=== PATIENT | female | born 1980 | race Caucasian/White ===

== ENCOUNTER 2018-06-16 11:05 | Emergency (ER) | payer MEDICARE ==
[~2018-06-16] VITALS: Ht 160 cm; Wt 113.6 kg
[~2018-06-16 11:05] MED LIST: FIORICET PO; GABAPENTIN600 MG PO; LAMICTAL100 M1 PO; LEVOTHYROXIN100 MCG PO; ORTHO CYCLEN PO; STRATTERA100 MG PO; TRAZODONE300 MG PO; ULTRAM50 M1 PO
[2018-06-16] MEDS ORDERED: TRINTELLIX10 MG PO (11:20)
[2018-06-16] MEDS ORDERED: SAPHRIS2.5 MG PO (11:20)
[2018-06-16] MEDS ORDERED: LISINOPRIL10 MG PO (11:21)
[2018-06-16] MEDS ORDERED: HYDROCHLOROT25 MG PO (11:21)
[2018-06-16] MEDS ORDERED: METFORMIN500 MG PO (11:21)
[2018-06-16] MEDS ORDERED: MEVACOR10 MG PO (11:22)
[2018-06-16] MEDS ORDERED: ADIPEX-P37.5 MG PO (11:22)
[2018-06-16 11:52] LABS: URINE BILIRUBIN - DIPSTICK NEGATIVE (NEGATIVE); URINE BLOOD DIPSTICK TRACE-INTACT (NEGATIVE); URINE COLOR YELLOW; URINE GLUCOSE - DIPSTICK NEGATIVE (NEGATIVE); URINE KETONE NEGATIVE (NEGATIVE); URINE LEUK ESTERASE NEGATIVE (NEGATIVE); URINE NITRITE - DIPSTICK NEGATIVE (Negative); URINE PH 7.5 (4.5-8.0); URINE PROTEIN - DIPSTICK NEGATIVE (NEG-TRACE); URINE UROBILINOGEN - DIPSTICK 0.2 E.U./dL (0.2)
[2018-06-16 12:03] LABS: HEMATOCRIT 38.2 % (37.0-47.0); HEMOGLOBIN 12.1 g/dl (12.0-16.0); IMMATURE GRANULOCYTES 0.4 % (0.0-5.0); MEAN CORPUSCULAR HGB CONC 31.7 g/L CALC (32.0-36.0); NEUT# 4.02 thou/uL (2.00-7.15); RED BLOOD COUNT 4.66 mill/uL (4.20-5.60); RED CELL DISTRI WIDTH 14.6 % (11.5-15.5)
[2018-06-16 12:08] LABS: ALBUMIN 3.9 g/dL (3.2-5.0); ALKALINE PHOSPHATASE 77 u/l (38-126); ANION GAP 16 (6-22 (CALC)); BILIRUBIN, TOTAL 0.3 mg/dL (0.0-1.4); BUN 11 mg/dL (7-17); BUN/CREATININE RATIO 17 (12-20 (CALC)); CARBON DIOXIDE 24 mmol/l (22-30); CHLORIDE 100 mmol/l (95-108); CREATININE 0.6 mg/dL (0.5-1.0); GFR > 60 ML/MIN (>=60 (CALC)); GFR FOR AFR.AMER. > 60 ML/MIN (>=60 (CALC)); POTASSIUM 3.7 mmol/l (3.5-5.1); SGOT/AST 19 u/l (14-36); SODIUM 136 mmol/l (137-146); TOTAL PROTEIN 6.6 g/dL (6.3-8.2)
[2018-06-16] MEDS ORDERED: DICLOFENAC25 MG PO (14:24)
[2018-06-16 14:31] VITALS: BP 140/86
== END 2018-06-16 14:53 | disposition home or self-care (01) ==
LOC: ED 11:05
PROVIDERS: Emergency Medicine
DX: R10.2 Pelvic and perineal pain (principal); N83.201 Unspecified ovarian cyst, right side; N20.0 Calculus of kidney
CPT/HCPCS: Q9967